=== PATIENT | male | born 1965 ===

== ENCOUNTER 2021-01-17 15:47 | Inpatient (IN) | payer OTHER ==
[2021-01-17 16:02] VITALS: BMI 35.2
[2021-01-17 17:39] LABS: EOS % 0.7 % (0-4.5); HEMOGLOBIN 14.5 GM/dl (11.7-16.9); RDW 12.5 % (11.9-15.9)
[2021-01-17 17:42] LABS: BASO % 0.8 % (0-2.0); HEMATOCRIT 42.9 % (35.4-49); LYMPH % 11.1 % (8-40); MCHC 33.8 g/dl (32.0-35.9); MEAN CELL VOLUME 94.9 fl (80-96); MEAN PLT VOLUME 8.2 fl (7.5-11.1); MONO % 2.1 % (3.8-10.2); NEUT % 85.3 % (42.8-82.8); PLATELET COUNT 263 K/MM3 (134-434); RBC 4.52 M/mm3 (4.00-5.60); WHITE BLOOD COUNT 7.8 K/mm3 (4.0-10.8)
[2021-01-17 17:43] LABS: INR 1.42 (0.82-1.09); PROTHROMBIN TIME (PATIENT) 15.5 SEC (10.2-13.0)
[2021-01-17 17:49] LABS: ALBUMIN 3.1 g/dl (3.4-5.0); BILIRUBIN,TOTAL 1.2 mg/dl (0.2-1); CALCIUM 8.8 mg/dl (8.5-10); CREATININE 0.8 mg/dl (0.55-1.3); TOT PROT 7.5 g/dl (6.4-8.2)
[2021-01-17] MEDS ORDERED: ENOXAPARIN NA (PORCINE) 100 MG/1 ML DISP.SYRIN SQ ONE (18:14)
[2021-01-17] MEDS ORDERED: ENOXAPARIN NA (PORCINE) 60 MG/0.6 ML DISP.SYRIN SQ ONE (18:14)
[2021-01-17] MEDS ORDERED: ENOXAPARIN NA (PORCINE) 120 MG/0.8 ML DISP.SYRIN SQ SCH (18:15)
[2021-01-17] MEDS ORDERED: CEFTRIAXONE 1,000 MG in DEXTROSE 5%-WATER - 50 ML IVPB ONE (19:31)
[2021-01-17] MEDS ORDERED: AZITHROMYCIN IVPB 500 MG in DEXTROSE 5%-WATER - 250 ML IVPB ONE (19:32)
[2021-01-17] MEDS ORDERED: cefTRIAXone SODIUM 1 GM VIAL ONE (19:34)
[2021-01-17] MEDS ORDERED: AZITHROMYCIN 500 MG VIAL IVPB ONE (19:35)
[2021-01-18] MEDS ORDERED: DEXAMETHASONE SOD PHOSPHATE 4 MG/1 ML VIAL IVPUSH ONE ×2 (00:37)
[2021-01-18] MEDS ORDERED: FLU VACCINE (FLULAVAL) PF 60 MCG/0.5 ML SYRINGE 2020-2021 IM ONE ×2 (06:15→10:00)
[2021-01-18] MEDS: GABAPENTIN 100 MG CAPSULE PO SCH ×3 (06:18→21:22)
[2021-01-18] MEDS: ENOXAPARIN NA (PORCINE) 120 MG/0.8 ML DISP.SYRIN SQ SCH ×2 (06:19→18:34)
[2021-01-18 06:59] LABS: HEMATOCRIT 36.5 % (35.4-49); HEMOGLOBIN 12.3 GM/dL (11.7-16.9); MCH 32.2 pg (25.7-33.7); MCHC 33.8 g/dl (32.0-35.9); MEAN CELL VOLUME 95.4 fl (80-96); PLATELET COUNT 240 K/MM3 (134-434); RBC 3.83 M/mm3 (4.00-5.60); RDW 13.4 % (11.9-15.9); WHITE BLOOD COUNT 6.6 K/mm3 (4.0-10.0)
[2021-01-18 07:40] LABS: POTASSIUM 4.2 mmol/L (3.5-5.1)
[2021-01-18 07:58] LABS: BLOOD UREA NITROGEN 13.4 mg/dL (7-18)
[2021-01-18 08:01] LABS: ALBUMIN 2.4 g/dl (3.4-5.0); CREATININE 0.7 mg/dL (0.55-1.3)
[2021-01-18 08:03] LABS: BILIRUBIN,DIRECT 0.3 mg/dL (0.0-0.2)
[2021-01-18 08:05] LABS: BILIRUBIN,TOTAL 0.8 mg/dL (0.2-1)
[2021-01-18 08:06] LABS: TOT PROT 6.4 g/dl (6.4-8.2)
[2021-01-18] MEDS ORDERED: PT OWN MED DRAWER 7, Y5N ONE ×3 (09:18→18:25)
[2021-01-18] MEDS ORDERED: ALLOPURINOL 300 MG TABLET (FP) PO SCH (10:00)
[2021-01-18] MEDS: BUDESONIDE/FORMETEROL FUMARATE 160/4.5 mcg INHALER IH SCH ×2 (10:13→21:22)
[2021-01-18] MEDS: DEXAMETHASONE SOD PHOSPHATE 4 MG/1 ML VIAL IVPUSH SCH (10:13)
[2021-01-18] MEDS: ASCORBIC ACID 500 MG TABLET (FP) PO SCH ×2 (10:14→21:22)
[2021-01-18] MEDS: ZINC SULFATE 220 MG CAPSULE (FP) PO SCH ×2 (10:14→21:22)
[2021-01-18] MEDS: amLODIPine BESYLATE 10 MG TABLET (FP) PO SCH (10:14)
[2021-01-18] MEDS: COLCHICINE 0.6 MG CAP PO SCH (10:15)
[2021-01-18] MEDS: CHOLECALCIFEROL (VIT D3) 1,000 UNIT (25 MCG) TABLET PO SCH (10:16)
[2021-01-18] MEDS ORDERED: REMDESIVIR 200 MG in SODIUM CHLORIDE 210 ML IVPB ONE (13:00)
[2021-01-18] MEDS: ALLOPURINOL 300 MG TABLET (FP) PO SCH (13:51)
[2021-01-18] MEDS: ATORVASTATIN CA 10 MG TABLET (FP) PO SCH (21:22)
[2021-01-19] MEDS: GABAPENTIN 100 MG CAPSULE PO SCH ×3 (05:59→22:10)
[2021-01-19] MEDS ORDERED: PT OWN MED DRAWER 7, Y5N ONE (06:04)
[2021-01-19] MEDS: ENOXAPARIN NA (PORCINE) 120 MG/0.8 ML DISP.SYRIN SQ SCH (06:45)
[2021-01-19 07:40] LABS: BASO % 0.1 % (0-2.0); HEMATOCRIT 37.1 % (35.4-49); HEMOGLOBIN 12.5 GM/dL (11.7-16.9); LYMPH % 8.1 % (8-40); MCH 32.1 pg (25.7-33.7); MCHC 33.7 g/dl (32.0-35.9); MEAN CELL VOLUME 95.2 fl (80-96); MEAN PLT VOLUME 8.9 fl (7.5-11.1); MONO % 3.8 % (3.8-10.2); PLATELET COUNT 295 K/MM3 (134-434); RDW 13.3 % (11.9-15.9); WHITE BLOOD COUNT 8.6 K/mm3 (4.0-10.0)
[2021-01-19 08:01] LABS: POTASSIUM 4.7 mmol/L (3.5-5.1)
[2021-01-19 08:10] LABS: ALBUMIN 2.4 g/dl (3.4-5.0)
[2021-01-19 08:11] LABS: CALCIUM 8.2 mg/dL (8.5-10.1); MAGNESIUM 2.3 mg/dL (1.8-2.4)
[2021-01-19 08:14] LABS: CREATININE 0.7 mg/dL (0.55-1.3)
[2021-01-19 08:15] LABS: BILIRUBIN,TOTAL 0.6 mg/dL (0.2-1); TOT PROT 6.6 g/dl (6.4-8.2)
[2021-01-19] MEDS: ASCORBIC ACID 500 MG TABLET (FP) PO SCH ×2 (09:05→22:09)
[2021-01-19] MEDS: ZINC SULFATE 220 MG CAPSULE (FP) PO SCH ×2 (09:05→22:09)
[2021-01-19] MEDS: BUDESONIDE/FORMETEROL FUMARATE 160/4.5 mcg INHALER IH SCH ×2 (09:05→22:10)
[2021-01-19] MEDS: DEXAMETHASONE SOD PHOSPHATE 4 MG/1 ML VIAL IVPUSH SCH (09:05)
[2021-01-19] MEDS: ALLOPURINOL 300 MG TABLET (FP) PO SCH (09:05)
[2021-01-19] MEDS: amLODIPine BESYLATE 10 MG TABLET (FP) PO SCH (09:05)
[2021-01-19] MEDS: CHOLECALCIFEROL (VIT D3) 1,000 UNIT (25 MCG) TABLET PO SCH (09:05)
[2021-01-19] MEDS: COLCHICINE 0.6 MG CAP PO SCH (09:05)
[2021-01-19] MEDS: REMDESIVIR 100 MG in SODIUM CHLORIDE 230 ML IVPB SCH (13:15)
[2021-01-19] MEDS: APIXABAN 5 MG TABLET PO SCH (22:09)
[2021-01-19] MEDS: ATORVASTATIN CA 10 MG TABLET (FP) PO SCH (22:09)
[2021-01-20] MEDS: GABAPENTIN 100 MG CAPSULE PO SCH ×3 (05:36→21:54)
[2021-01-20 08:03] LABS: BASO % 0.2 % (0-2.0); HEMATOCRIT 36.3 % (35.4-49); HEMOGLOBIN 12.1 GM/dL (11.7-16.9); LYMPH % 9.2 % (8-40); MCH 32.3 pg (25.7-33.7); MCHC 33.3 g/dl (32.0-35.9); MEAN CELL VOLUME 96.8 fl (80-96); MEAN PLT VOLUME 8.7 fl (7.5-11.1); MONO % 4.9 % (3.8-10.2); NEUT % 85.7 % (42.8-82.8); PLATELET COUNT 323 K/MM3 (134-434); RBC 3.75 M/mm3 (4.00-5.60); RDW 13.4 % (11.9-15.9); WHITE BLOOD COUNT 8.9 K/mm3 (4.0-10.0)
[2021-01-20 08:35] LABS: POTASSIUM 4.9 mmol/L (3.5-5.1)
[2021-01-20 08:41] LABS: ALBUMIN 2.3 g/dl (3.4-5.0)
[2021-01-20 08:42] LABS: BLOOD UREA NITROGEN 21.6 mg/dL (7-18); CALCIUM 8.4 mg/dL (8.5-10.1); MAGNESIUM 2.2 mg/dL (1.8-2.4)
[2021-01-20 08:44] LABS: CREATININE 0.8 mg/dL (0.55-1.3)
[2021-01-20 08:46] LABS: BILIRUBIN,TOTAL 0.4 mg/dL (0.2-1)
[2021-01-20] MEDS ORDERED: PT OWN MED DRAWER 7, Y5N ONE (09:23)
[2021-01-20] MEDS: ASCORBIC ACID 500 MG TABLET (FP) PO SCH ×2 (10:22→21:54)
[2021-01-20] MEDS: amLODIPine BESYLATE 10 MG TABLET (FP) PO SCH (10:22)
[2021-01-20] MEDS: ZINC SULFATE 220 MG CAPSULE (FP) PO SCH ×2 (10:22→21:55)
[2021-01-20] MEDS: APIXABAN 5 MG TABLET PO SCH ×2 (10:23→21:54)
[2021-01-20] MEDS: CHOLECALCIFEROL (VIT D3) 1,000 UNIT (25 MCG) TABLET PO SCH (10:23)
[2021-01-20] MEDS: ALLOPURINOL 300 MG TABLET (FP) PO SCH (10:23)
[2021-01-20] MEDS: COLCHICINE 0.6 MG CAP PO SCH (10:24)
[2021-01-20] MEDS: DEXAMETHASONE SOD PHOSPHATE 4 MG/1 ML VIAL IVPUSH SCH (10:24)
[2021-01-20] MEDS: BUDESONIDE/FORMETEROL FUMARATE 160/4.5 mcg INHALER IH SCH ×2 (10:30→21:55)
[2021-01-20] MEDS: REMDESIVIR 100 MG in SODIUM CHLORIDE 230 ML IVPB SCH (13:18)
[2021-01-20] MEDS: ATORVASTATIN CA 10 MG TABLET (FP) PO SCH (21:54)
[2021-01-21] MEDS: GABAPENTIN 100 MG CAPSULE PO SCH ×3 (07:06→21:24)
[2021-01-21 07:25] LABS: BASO % 0.2 % (0-2.0); HEMATOCRIT 35.9 % (35.4-49); HEMOGLOBIN 12.2 GM/dL (11.7-16.9); MCH 32.3 pg (25.7-33.7); MCHC 34.1 g/dl (32.0-35.9); MEAN CELL VOLUME 94.9 fl (80-96); MEAN PLT VOLUME 8.8 fl (7.5-11.1); MONO % 5.7 % (3.8-10.2); NEUT % 83.1 % (42.8-82.8); PLATELET COUNT 324 K/MM3 (134-434); RBC 3.78 M/mm3 (4.00-5.60); RDW 13.5 % (11.9-15.9); WHITE BLOOD COUNT 7.4 K/mm3 (4.0-10.0)
[2021-01-21 07:56] LABS: POTASSIUM 4.4 mmol/L (3.5-5.1)
[2021-01-21 08:02] LABS: ALBUMIN 2.3 g/dl (3.4-5.0); BLOOD UREA NITROGEN 18.7 mg/dL (7-18)
[2021-01-21 08:05] LABS: CREATININE 0.6 mg/dL (0.55-1.3)
[2021-01-21 08:06] LABS: BILIRUBIN,TOTAL 0.4 mg/dL (0.2-1)
[2021-01-21] MEDS: COLCHICINE 0.6 MG CAP PO SCH (11:12)
[2021-01-21] MEDS: DEXAMETHASONE SOD PHOSPHATE 4 MG/1 ML VIAL IVPUSH SCH (11:13)
[2021-01-21] MEDS: amLODIPine BESYLATE 10 MG TABLET (FP) PO SCH (11:13)
[2021-01-21] MEDS: ZINC SULFATE 220 MG CAPSULE (FP) PO SCH ×2 (11:13→21:24)
[2021-01-21] MEDS: APIXABAN 5 MG TABLET PO SCH ×2 (11:13→21:24)
[2021-01-21] MEDS: BUDESONIDE/FORMETEROL FUMARATE 160/4.5 mcg INHALER IH SCH ×2 (11:13→21:25)
[2021-01-21] MEDS: ALLOPURINOL 300 MG TABLET (FP) PO SCH (11:14)
[2021-01-21] MEDS: CHOLECALCIFEROL (VIT D3) 1,000 UNIT (25 MCG) TABLET PO SCH (11:14)
[2021-01-21] MEDS: ASCORBIC ACID 500 MG TABLET (FP) PO SCH ×2 (11:14→21:24)
[2021-01-21] MEDS: REMDESIVIR 100 MG in SODIUM CHLORIDE 230 ML IVPB SCH (13:22)
[2021-01-21] MEDS: ATORVASTATIN CA 10 MG TABLET (FP) PO SCH (21:24)
[2021-01-22] MEDS: GABAPENTIN 100 MG CAPSULE PO SCH ×2 (07:12→13:57)
[2021-01-22 08:38] LABS: BASO % 0.1 % (0-2.0); EOS % 0.1 % (0-4.5); HEMATOCRIT 38.6 % (35.4-49); LYMPH % 13.9 % (8-40); MCH 32.3 pg (25.7-33.7); MCHC 33.7 g/dl (32.0-35.9); MEAN CELL VOLUME 95.8 fl (80-96); MEAN PLT VOLUME 8.2 fl (7.5-11.1); MONO % 5.7 % (3.8-10.2); NEUT % 80.2 % (42.8-82.8); PLATELET COUNT 328 K/MM3 (134-434); RBC 4.03 M/mm3 (4.00-5.60); RDW 13.7 % (11.9-15.9); WHITE BLOOD COUNT 7.2 K/mm3 (4.0-10.0)
[2021-01-22 08:56] LABS: POTASSIUM 4.7 mmol/L (3.5-5.1)
[2021-01-22 09:10] LABS: BILIRUBIN,TOTAL 0.6 mg/dL (0.2-1); TOT PROT 6.3 g/dl (6.4-8.2)
[2021-01-22 09:11] LABS: ALBUMIN 2.5 g/dl (3.4-5.0)
[2021-01-22 09:12] LABS: CREATININE 0.7 mg/dL (0.55-1.3)
[2021-01-22 09:15] LABS: BLOOD UREA NITROGEN 18.4 mg/dL (7-18)
[2021-01-22 09:22] LABS: CALCIUM 8.4 mg/dL (8.5-10.1)
[2021-01-22 09:23] LABS: MAGNESIUM 2.4 mg/dL (1.8-2.4)
[2021-01-22] MEDS: COLCHICINE 0.6 MG CAP PO SCH (09:56)
[2021-01-22] MEDS: ALLOPURINOL 300 MG TABLET (FP) PO SCH (09:56)
[2021-01-22] MEDS: amLODIPine BESYLATE 10 MG TABLET (FP) PO SCH (09:56)
[2021-01-22] MEDS: ZINC SULFATE 220 MG CAPSULE (FP) PO SCH (09:56)
[2021-01-22] MEDS: BUDESONIDE/FORMETEROL FUMARATE 160/4.5 mcg INHALER IH SCH (09:56)
[2021-01-22] MEDS: APIXABAN 5 MG TABLET PO SCH (09:56)
[2021-01-22] MEDS: ASCORBIC ACID 500 MG TABLET (FP) PO SCH (09:56)
[2021-01-22] MEDS: CHOLECALCIFEROL (VIT D3) 1,000 UNIT (25 MCG) TABLET PO SCH (09:56)
[2021-01-22] MEDS ORDERED: DEXAMETHASONE 4 MG TABLET (FP) PO SCH (10:00)
[2021-01-22] MEDS: REMDESIVIR 100 MG in SODIUM CHLORIDE 230 ML IVPB SCH (12:24)
[2021-01-22 15:26] VITALS: BP 125/77; PULSE 79; TEMP 98.2
== END 2021-01-22 17:00 | disposition home or self-care (01) | DRG 79 ==
LOC: FER 15:47 → J4W 23:40
PROVIDERS: ADMIT Nurse Practitioner Family; ATTEND Nurse Practitioner Acute Care
PROC: XW033E5 Introduction of Remdesivir Anti-infective into Peripheral Vein, Percutaneous Approach, New Technology Group 5 (ICD-10-PCS; principal; 2021-01-18)
DX: U07.1 COVID-19 (principal); J96.01 Acute respiratory failure with hypoxia; I48.91 Unspecified atrial fibrillation; J12.82 Pneumonia due to coronavirus disease 2019; I10 Essential (primary) hypertension; E78.5 Hyperlipidemia, unspecified; E66.9 Obesity, unspecified; Z68.35 Body mass index [BMI] 35.0-35.9, adult; M10.9 Gout, unspecified; R74.01 Elevation of levels of liver transaminase levels; N62 Hypertrophy of breast; R73.03 Prediabetes; R51.9 Headache, unspecified; R50.9 Fever, unspecified; R80.9 Proteinuria, unspecified; G47.30 Sleep apnea, unspecified
CPT/HCPCS: 36415; 71045-TC-FY; 80048; 80053; 80061; 80076; 81003; 81015; 82550; 82553; 82728; 83036; 83615; 83721; 83735; 83880; 84443; 84484; 85025; 85027; 85379; 85610; 85651; 86140; 86769; 87040; 93005; 94761; 99285-25; C9399; C9803; U0003

== ENCOUNTER 2021-03-26 04:04 | Day surgery (SDC) | payer OTHER ==
[2021-03-23 16:50] VITALS: BMI 36.3
[2021-03-26 13:08] VITALS: TEMP 96.6
[2021-03-26 14:22] VITALS: BP 134/84; PULSE 63
== END 2021-03-26 14:53 | disposition home or self-care (01) ==
LOC: JASU-ENDO 04:04
PROVIDERS: ATTEND Internal Medicine Cardiovascular Disease
PROC: 5A2204Z Restoration of Cardiac Rhythm, Single (ICD-10-PCS; principal; 2021-03-26 12:49)
DX: I48.91 Unspecified atrial fibrillation (principal)
CPT/HCPCS: 92960; 93005; 93010